=== PATIENT | female | born 1945 | race Caucasian/White ===

== ENCOUNTER 2017-02-22 13:21 | Emergency (ER) | payer SELFPAY ==
--- NOTE | 2017-02-27 13:49 | ER ---
ADMIT: 02/22/2017 RM/LOC: ER [facility] MR#: [id number] [address] [facility] [address] [place], [place] [address] CHAVEZ DONOVAN [address] [id number] Emergency Room Report SEX: F AGE: 71 : 1945 DATE: 02/22/2017 HISTORY OF PRESENT ILLNESS: The patient is a 71-year-old female, came to the ER with daughter, chief complaint of not having appetite to eat for the last 8 months. The patient denies any difficulty swallowing or any abdominal pain or chest pain or shortness of breath. The patient states sometimes she has cough, which has not changed from before. The patient states she generally feels weak and tired all the time and states that she has problems going to sleep and has decreased appetite. The patient during the last 8 or 9 months had a very few episodes of nausea, which the patient does not have it today. Their primary doctor is in [place], and the patient has not been seen by a primary physician for some time. The patient has a history of hypothyroidism and hypertension and is compliant with her medications. PHYSICAL EXAMINATION: GENERAL: The patient was quiet, in no distress sitting in bed, looks mildly lethargic. HEAD AND NECK: Normal conjunctivae, pharynx is normal, no thyromegaly. CHEST: There are questionable crackles at the right posterior lower lung, I did not hear any wheezing. Normal cardiac sounds without any S3 or S4 gallop. ABDOMEN: Soft and nontender. In the back and skin, I did not see any abnormality. EXTREMITIES: Not tender or swollen. NEUROLOGIC: Motor and sensory, and rest of the neural exam is normal. PSYCHOLOGIC: The patient does not have any suicidal or homicidal ideation. The patient does not have any delusions or hallucinations too. EKG showed atrial fibrillation with a heart rate of 79, chest x-ray was questionable with right lower lobe infiltration, atelectasis. The patient had white BC of 10.1 with hemoglobin of 13 and platelet of 163. TSH was 0.3 with free T4 of 1.35. Sodium was 142 with potassium of 3.4, and BUN of 23, and glucose of 82 and creatinine of 0.9. Urine was not significant. The patient ADMIT: 02/22/2017 RM/LOC: ER [facility] MR#: [id number] [address] [address] [address] Emergency Room Report SEX: F AGE: 71 : 1945 has no primary doctor. The importance of having a primary doctor was discussed with the patient and daughter, and they insisted that the patient be started on if necessary any mood changing medications. The patient was started on Lexapro. The importance of following up at least the 1st week as soon as possible with the primary doctor and then chronic followups were discussed with the patient and the family. They were informed that in some patients Lexapro could increase the suicidality of the patient, and it takes few weeks to have any effects on changing the mood. The very importance of the close followup as soon as possible with the primary doctor was discussed with the patient and family, and they promised to find a family doctor and get an appointment this week. The patient was discharged to home with Lexapro 10 mg p.o. daily, Z-Binh, and follow up with the primary doctor this week. Virgilio Monzon MD/ alexsander JOB #: [id number] CC: Octavio Mendoza MD, Attending Physician UNKNOWN, Family Physician
[2017-03-17] MEDS ORDERED: XARELTO20 MG PO (18:20)
[2017-03-17] MEDS ORDERED: SYNTHROID DP0.025 MG PO (18:20)
[2017-03-17] MEDS ORDERED: DUONEB DPS3 ML IH (18:21)
[2017-03-17] MEDS ORDERED: ASA CHILDREN'S81 MG PO (18:22)
[2017-03-17] MEDS ORDERED: BREO ELLIP1 PUFF/DOS IH (18:22)
[2017-03-17] MEDS ORDERED: DELTASONE DPS10 MG PO (18:23)
[2017-03-17] MEDS ORDERED: LEVAQUIN DPS750 MG PO (18:24)
[2017-03-17] MEDS ORDERED: MUCINEX600 MG PO (18:25)
[2017-03-17] MEDS ORDERED: NICODERM CQ1 EAC1 TD (18:25)
[2017-03-17] MEDS ORDERED: MIRALAX PACKET17 GM PO (18:25)
[2017-03-17] MEDS ORDERED: COLACE-DPS100 MG PO (18:25)
== END 2017-02-22 15:45 | disposition home or self-care (01) ==
LOC: ER 13:21
DX: J18.9 Pneumonia, unspecified organism (principal); F43.0 Acute stress reaction; I48.91 Unspecified atrial fibrillation; F39 Unspecified mood [affective] disorder; I10 Essential (primary) hypertension; E03.9 Hypothyroidism, unspecified; F17.210 Nicotine dependence, cigarettes, uncomplicated; Z79.899 Other long term (current) drug therapy

== ENCOUNTER → 2017-03-09 | Outpatient (CLI) | payer SELFPAY ==
[~2017-03-09] MED LIST: ASA CHILDREN'S81 MG PO; BREO ELLIP1 PUFF/DOS IH; COLACE-DPS100 MG PO; DELTASONE DPS10 MG PO; DUONEB DPS3 ML IH; LEVAQUIN DPS750 MG PO; MIRALAX PACKET17 GM PO; MUCINEX600 MG PO; NICODERM CQ1 EAC1 TD; SYNTHROID DP0.025 MG PO; XARELTO20 MG PO
== END | disposition home or self-care (01) ==
LOC: PTH.S 07:30 → RAD.S 08:00
DX: R05 Cough (principal); J98.11 Atelectasis; J98.09 Other diseases of bronchus, not elsewhere classified

== ENCOUNTER 2017-03-15 03:06 | Inpatient (IN) | payer SELFPAY ==
[~2017-03-15] VITALS: Ht 167.6 cm; Wt 76.4 kg
--- NOTE | ~2017-03-15 | ECH ---
Transthoracic Echocardiography Report (TTE) Demographics Patient Name YULIA DONOVAN Date of Study 03/15/2017 Patient Number [id number] Visit Number [id number] Date of 1945 Room Number 310 Accession Number [id number] Gender Female Age 71 year(s) Referring Kadeem Lal Cable Tester Suzie Tolentino [facility] Physician Physician Interpreting [place] Nathan [employer] Lug[employer] Molder Physician Supervising Ordering Physician Kadeem Lal MD/MLP Nurse Stress Voice Network Engineer Conclusions Summary Technically fair exam. The estimated left ventricular ejection fraction is 55-60% in underlying atrial fibrillation. Mild concentric left ventricular hypertrophy. The left atrium is mildly dilated by LA volume index measurement. No significant valvular abnormalities. Procedure Type of Study TTE procedure:Echo Complete SF. Procedure Date Date: 03/15/2017 Start: 10:28 AM Technical Quality: Fair Indications:Atrial fibrillation and Hypertension. Height: 66 inches Weight: 168 pounds BSA: 1.86 m Rhythm: Atrial fibrillation HR: 79 bpm BP: 87/68 mmHg M-Mode/2D Measurements LV Diastolic Dimension: 4.8 cm LV Systolic Dimension: 2.72 cm LV Septum Diastolic: 0.94 cm LV PW Diastolic: 1.01 cm AO Root Dimension: 2.16 cm Cardiac Output: 4.93 l/min LA Dimension: 4.55 cm Cardiac Index: 2.65 l/min*m LA volume index: 38 ml/m LVOT: 1.92 cm RV Base: 3.7 cm LVOT VTI: 21.55 cm RV Mid: 2.4 cm LV Stroke volume: 62.36 ml RV Length: 5.9 cm LV Stroke volume index: 33.53 ml/m Doppler Measurements AV Peak Velocity: 1.15 m/s MV Peak E-Wave: 0.79 m/s AV Peak Gradient: 5.29 mmHg AV Mean Gradient: 2.89 mmHg LVOT Peak Velocity: 0.95 m/s AV Area (Continuity):2.99 cm PV Peak Velocity: 0.98 m/s TR Velocity:2.17 m/s PV Peak Gradient: 3.82 mmHg TR Gradient:18.84 mmHg Estimated PASP: 22.84 mmHg Estimated RAP:4 mmHg Estimated RVSP: 23 mmHg RA Area: 16.47 cm Findings Left Ventricle The left ventricle is normal in size . Mild concentric left ventricular hypertrophy. Diastolic function indeterminate due to patient's arrhythmia. Right Ventricle Normal right ventricle structure and function. Left Atrium The left atrium is mildly dilated by LA volume index measurement. Right Atrium Normal right atrial size. Mitral Valve Normal mitral valve structure and function. Trivial mitral regurgitation by color Doppler. Aortic Valve Normal aortic valve structure and function. Tricuspid Valve Normal appearing tricuspid valve. Trivial tricuspid regurgitation by color Doppler. Pulmonic Valve Normal pulmonic valve structure and function. Pericardial Effusion No evidence of pericardial effusion. Miscellaneous Visualized portions of the aortic root and ascending aorta appear normal in size. Pleural Effusion No evidence of pleural effusion. Contractility Score LV regional wall motion:(0-Non visualized 1-Normal 2-Hypokinesis 3-Akinesis 4-Dyskinesis 5-Aneurysm) Signature
--- NOTE | 2017-03-15 19:37 | ER ---
ADMIT: 03/15/2017 RM/LOC: 310 [facility] MR#: [id number] [address] [place] [id number] [place], [place] [address] YULIA DONOVAN [address] [id number] Emergency Room Report SEX: F AGE: 71 : 1945 DATE: 03/15/2017 CHIEF COMPLAINT: Respiratory distress. HISTORY OF PRESENT ILLNESS: The patient is a 71-year-old female, presents by ambulance with acute respiratory distress that awoke her this morning, took an aerosol treatment prior to paramedics arrival. Continued with DuoNeb with slight improvement. 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 Also states she has been noncompliant with her Synthroid for the past 2 weeks. She has been compliant with her Xarelto for chronic atrial fibrillation. PAST MEDICAL HISTORY: ILLNESSES: Atrial fibrillation, hypertension, hyperlipidemia, hypothyroidism, tracheal stenosis/malacia. OPERATIONS: Appendectomy, partial thyroidectomy. ALLERGIES: NONE. MEDICATIONS: None. SOCIAL HISTORY: Smokes 1/3 pack per day. No illicit drugs or alcohol. FAMILY HISTORY: Negative per chart review. REVIEW OF SYSTEMS: A 12-point review of systems negative for all other systems, illnesses, or operations except as outlined above. PHYSICAL EXAMINATION: VITAL SIGNS: Temp 96.9, pulse 87, respirations 22, BP 109/87, SaO2 of 98% on room air. GENERAL: Anxious, non-diaphoretic, without jaundice or icterus. HEENT: Normocephalic. No evidence of epistaxis, rhinorrhea, or otorrhea. NECK: Supple without lymphadenopathy or thyromegaly. CHEST: Breath sounds equal, diminished, with expiratory wheeze noted throughout. HEART: Regular rate, irregular rhythm without murmur, gallop, or edema. ABDOMEN: Soft, nontender, nondistended without mass or megaly. Bowel sounds hypoactive. EXTREMITIES: No evidence of Homans sign, synovitis, or dermatitis. MEDICAL DECISION MAKING: The patient was given racemic epi, 2 DuoNeb, Solu- Medrol, magnesium with improvement. EKG shows atrial fib, low voltage, unchanged from previous. Chest x-ray showed no acute findings. CTA chest showed right middle lobe atelectasis, no infiltrate or pulmonary emboli. WBC 10.7, lactic 1.5, CRP less than 0.29. Troponin less than 0.015. D-dimer is slightly elevated 0.76. BNP 189. INR 1.52. TSH elevated 57.4, free T4 decreased to 0.24. UA clean-catch specimen 3+ leukocyte esterase. The patient was given 30 mL/kg bolus with improvement in blood pressure. Discussed case with Dr. Quan, who agreed and gave orders to nursing staff. Levaquin 500 mg IV piggyback was initiated at in department for UTI. ADMIT: 03/15/2017 RM/LOC: 310 [facility] MR#: [id number] [address] [address] [address] Emergency Room Report SEX: F AGE: 71 : 1945 DIAGNOSES: 1. Acute exacerbation of chronic obstructive pulmonary disease. 2. Hypothyroidism. 3. Urinary tract infection. RECOMMENDATION: Admit inpatient PCU for Dr. Quan. ADMISSION/DISCHARGE CONDITION: Good. Alejandro Holloway MD/ modl JOB #: [id number] CC: Floridalma Quan MD, Attending Physician Floridalma Quan MD, Family Physician Ying Quan MD
[2017-03-17] MEDS ORDERED: XARELTO20 MG PO (18:20)
[2017-03-17] MEDS ORDERED: SYNTHROID DP0.025 MG PO (18:20)
[2017-03-17] MEDS ORDERED: DUONEB DPS3 ML IH (18:21)
[2017-03-17] MEDS ORDERED: BREO ELLIP1 PUFF/DOS IH (18:22)
[2017-03-17] MEDS ORDERED: ASA CHILDREN'S81 MG PO (18:22)
[2017-03-17] MEDS ORDERED: DELTASONE DPS10 MG PO (18:23)
[2017-03-17] MEDS ORDERED: LEVAQUIN DPS750 MG PO (18:24)
[2017-03-17] MEDS ORDERED: COLACE-DPS100 MG PO (18:25)
[2017-03-17] MEDS ORDERED: MIRALAX PACKET17 GM PO (18:25)
[2017-03-17] MEDS ORDERED: NICODERM CQ1 EAC1 TD (18:25)
[2017-03-17] MEDS ORDERED: MUCINEX600 MG PO (18:25)
--- NOTE | 2017-03-22 08:49 | HP ---
ADMIT: 03/15/2017 RM/LOC: 310 [facility] MR#: [id number] 2620 [facility] [address] [place], [place] [address] YULIA DALEY [address] [address] History and Physical SEX: F AGE: 71 : 1945 DATE OF SERVICE: CHIEF COMPLAINT: Shortness of breath. HISTORY OF PRESENT ILLNESS: Ms. Daley is a 71-year-old female, who has been seen by Ying Ramires at our clinic but usually gets medical care at [facility], who presented with shortness of breath overnight. She said she was in her usual state of health yesterday, but woke up in the middle of night and was unable to breathe. She came to the ER and her symptoms improved after a breathing treatment. She has a significant smoking history of greater than 50 years of smoking more than one pack per day. She denies any previous diagnosis of COPD and does not use any inhalers. She does have known atrial fibrillation and was recently started on Xarelto for this. She also saw Cardiology just two weeks ago who was in the process of a cardiac evaluation. Her other medical history is significant for depression and hypothyroidism. She has been out of all of her medications however over the last two weeks. At this time, she denies any chest pain or shortness of breath. She does have some increased sputum production. She also has chronic constipation that is unchanged. No fevers or chills. No chest pain or palpitations. No nausea or vomiting. No diaphoresis. PAST MEDICAL HISTORY: 1. Persistent atrial fibrillation, on chronic anticoagulation. 2. Hypertension. 3. Hypothyroidism. 4. Generalized anxiety disorder. 5. Major depressive disorder. 6. Noncompliance. MEDICATIONS: 1. Escitalopram 10 mg daily. 2. Losartan 100 mg daily. 3. Hydrochlorothiazide 25 mg daily. 4. Synthroid 250 mcg daily. 5. Xarelto 20 mg daily. 6. Albuterol p.r.n. 7. [id number] constipation treatment. ALLERGIES: NO KNOWN MEDICAL ALLERGIES. FAMILY HISTORY: Noncontributory. SOCIAL HISTORY: The patient is previously from [place]. Her and son recently , so has been having difficulty with this. She has been smoking at least one pack per day since the age of 22. She did report going nine months tobacco free about one year ago. REVIEW OF SYSTEMS: As per HPI. Otherwise, reviewed and negative. ADMIT: 03/15/2017 RM/LOC: 310 [facility] MR#: [id number] [address] [address] [place] [address] [address] History and Physical SEX: F AGE: 71 : 1945 PHYSICAL EXAMINATION: VITAL SIGNS: Temperature 97.6, heart rate 93, blood pressure 90/51, respiratory rate 25, oxygen saturation 96% on room air. GENERAL: The patient is awake, alert, in no acute distress. HEENT: Within normal limits. HEART: Regular rate and rhythm. No murmurs. LUNGS: Diminished throughout. No accessory muscle use. No adventitial lung sounds. She does cough up some sputum. ABDOMEN: Soft, nontender, nondistended. Normal bowel sounds. EXTREMITIES: Warm and dry. No edema. SKIN: With poor turgor, but no other rash or lesion. NEUROLOGIC: Cranial nerves II through XII grossly intact. No focal neurologic deficit. PSYCHIATRIC: The patient has a depressed affect, but otherwise appropriate. LABORATORY DATA: Reviewed. IMAGING: CTA and chest x-ray were reviewed. EKG shows atrial fibrillation with a rate of 81. ASSESSMENT AND PLAN: 1. Chronic obstructive pulmonary disease exacerbation. We will start oral prednisone, Levaquin, and continue DuoNebs. We will also initiate Breo for chronic management. Strongly encouraged tobacco cessation. 2. Tobacco abuse. Cessation encouraged. She will use a nicotine patch during admission and was agreeable to continue this as an outpatient. 3. Persistent atrial fibrillation, on rate control. She is also on anticoagulation, but has been noncompliant with this. We will get her cardiac echocardiogram while she is inpatient today. We will continue to ADMIT: 03/15/2017 RM/LOC: 310 [facility] MR#: [id number] [address] [address] [facility] [place] [id number] History and Physical SEX: F AGE: 71 : 1945 follow with Cardiology as an outpatient unless acute issues arise. 4. Chronic hypertension with acute hypotension during this admission. Her blood pressures have responded nicely to IV fluids, we will continue with this. We will hold her antihypertensive medications until blood pressure stabilize. 5. Hypothyroidism. This is uncontrolled secondary to medication noncompliance. Stressed the importance of taking her medications routinely. We will restart at this time. 6. Generalized anxiety disorder and major depressive disorder. We will continue her escitalopram. No signs of suicidal ideation. 7. Disposition. The patient will continue with progressive care monitoring. 8. Code status. The patient is a full code. Floridalma Quan MD/ alexsander JOB #: [id number] CC: Floridalma Quan, Attending Physician Floridalma Quan, Family Physician
--- NOTE | 2017-04-04 07:18 | DS ---
ADMIT: 03/15/2017 RM/LOC: 428 [facility] MR#: [id number] [address] [facility] [address] [place], [place] [address] MITUL DONOVANATE [address] [address] General Discharge Summary SEX: F AGE: 71 : 1945 ADMISSION DATE: 03/15/2017 DISCHARGE DATE: 03/16/2017 DISCHARGE DIAGNOSES: 1. Chronic obstructive pulmonary disease with acute exacerbation. 2. Urinary tract infection. 3. Chronic atrial fibrillation, rate controlled on chronic anticoagulation. 4. Hypertension with episodic hypotension. 5. Hypothyroidism, uncontrolled. 6. Generalized anxiety disorder. 7. Noncompliance with medications. 8. Tobacco abuse. PROCEDURES: None. CONSULTS: None. REASON FOR ADMISSION: The patient was admitted from the Emergency Department after presenting with increased shortness of breath and the findings concerning for COPD exacerbation and urinary tract infection. HOSPITAL COURSE: The patient was initiated on IV antibiotics with Levaquin through the Emergency Department. She was admitted to progressive care unit for further evaluation and treatment. She had borderline low blood pressures with initial blood pressure of 98/59. This improved with IV fluids, and at time of discharge was 106/67. She also has known chronic atrial fibrillation and was monitored on telemetry. Her heart rates were controlled in the 70s to 90s. She is on Xarelto as an outpatient, although has been noncompliant with this. It was restarted during her admission. Similarly, she has chronic hypothyroidism and is prescribed Synthroid as an outpatient. She has not been taking this either. Therefore, her TSH on initial presentation was elevated at 57.4. Her Synthroid was restarted during this admission. Her initial complaint was shortness of breath. This responded well to nebulizers. Her Levaquin was able to be transitioned to p.o. route on March 15. Her Breo inhaler was also restarted. She had DuoNebs q.i.d. and up to every 4 hours as needed. She did not require any supplemental oxygen. Chest x-ray did not show any consolidation. It was recommended that she quit smoking. She was not allowed to smoke during her admission and received nicotine transdermal patch. On March 16, her magnesium level was mildly low at 1.5. This was treated and responded appropriately and was 1.8 at discharge. She underwent a 6-minutes oxygen assessment walk and did not require any oxygen. Given stability on oral medications and no need for oxygen, she was stable for discharge on March 16. DISCHARGE MEDICATIONS: 1. Xarelto 20 mg daily. 2. Synthroid 250 mcg daily. 3. Aspirin 81 mg daily. 4. Breo 100 mcg daily. ADMIT: 03/15/2017 RM/LOC: 428 [facility] MR#: [id number] [address] [address] YULIA DONOVAN [address] [place] [address] General Discharge Summary SEX: F AGE: 71 : 1945 5. DuoNeb q.i.d. for seven days and up to every 4 hours as needed. 6. Prednisone 40 mg today and then taper over the next nine days. 7. Levaquin 750 mg one tablet daily for seven days. 8. Nicotine patch. 9. Docusate b.i.d. p.r.n. 10.Guaifenesin 600 mg b.i.d. p.r.n. 11.MiraLax p.r.n. DISCHARGE INSTRUCTIONS: The patient was discharged to home in stable condition. She will follow up with her usual providers at [facility] on March 23. She will continue with diet and activity as tolerated. Tobacco cessation was again encouraged. Greater than 30 minutes was spent in discharge. Floridalma Quan MD/ alexsander JOB #: [id number] CC: Floridalma Quan MD, Attending Physician Floridalma Quan MD, Family Physician
== END 2017-03-16 15:30 | disposition home or self-care (01) | DRG 191 ==
LOC: ER 03:06 → 4PCU 06:30 → 3ICU 06:30 → 4PCU 21:51
PROVIDERS: ADMIT Family Medicine
DX: J44.1 Chronic obstructive pulmonary disease with (acute) exacerbation (principal); N39.0 Urinary tract infection, site not specified; I95.9 Hypotension, unspecified; I48.2 Chronic atrial fibrillation; K59.09 Other constipation; T38.1X6A Underdosing of thyroid hormones and substitutes, initial encounter; Z91.128 Patient's intentional underdosing of medication regimen for other reason; F41.1 Generalized anxiety disorder; F32.9 Major depressive disorder, single episode, unspecified; I10 Essential (primary) hypertension; E78.5 Hyperlipidemia, unspecified; E03.9 Hypothyroidism, unspecified; F17.210 Nicotine dependence, cigarettes, uncomplicated; Z79.01 Long term (current) use of anticoagulants

== ENCOUNTER 2017-04-16 14:31 | Emergency (ER) | payer SELFPAY ==
--- NOTE | 2017-04-22 18:55 | ER ---
ADMIT: 04/16/2017 RM/LOC: ER [facility] MR#: [id number] [address] [address] YULIA MARTINEZ [address] [address] Emergency Room Report SEX: F AGE: 71 : 1945 DATE: 04/16/2017 ADDENDUM: This patient is brought into the ER by her daughter because of concerns of her breathing. She makes a lot of noise when she breathes. She was told that she has COPD, was admitted to the hospital because of issues with her thyroid according to her daughter recently. She has been having this funny breathing even when she was in the hospital and her daughter was concerned that they did not seem to do anything about it while she was admitted. On physical exam, her O2 saturation is 97% and she does have wheezing, but it sounds more like upper respiratory noises and not in her lungs. She ambulates without any difficulty and does not feel short of breath when she ambulates. Her chest x-ray was normal. I gave her a breathing treatment. I explained to the daughter that it sounded like she has had laryngitis, which is what she was told that she had. They would like a medication for this. I explained to them that it was viral since she really was able to eat and drink normally, was not having fevers, just the noise when she breathes. They should continue with the medications that were prescribed by their physician. If for any reason she has difficulty with shortness of breath, unable to walk, not keeping fluids down, or fevers, they should return to the ER or see their physician. Please see my T-sheet. SEAMUS Thornton / Danial Licona MD / alexsander JOB #: [id number] CC: Danial Licona MD, Attending Physician UNKNOWN, Family Physician Doug Stoddard MD
== END 2017-04-16 15:50 | disposition home or self-care (01) ==
LOC: ER 14:31
DX: J04.0 Acute laryngitis (principal); E03.9 Hypothyroidism, unspecified; F17.200 Nicotine dependence, unspecified, uncomplicated; Z90.49 Acquired absence of other specified parts of digestive tract; Z79.899 Other long term (current) drug therapy; Z79.82 Long term (current) use of aspirin; Z79.01 Long term (current) use of anticoagulants

== ENCOUNTER 2017-04-19 11:13 | Emergency (ER) | payer SELFPAY ==
--- NOTE | 2017-04-22 12:41 | ER ---
ADMIT: 04/19/2017 RM/LOC: ER [facility] MR#: [id number] [address] [address] YULIA MARTINEZ [address] [address] Emergency Room Report SEX: F AGE: 71 : 1945 DATE: 04/19/2017 ADDENDUM: A 71-year-old female coming in with shortness of breath. She has COPD. She has a raspy type of cough. A soft tissue neck was done. There is really nothing acute on the soft tissue neck. The chest x-ray was done yesterday when she was here. She had not pneumonia. CBC, chemistry, and BNP essentially negative. At this time, she said she quit smoking. She had smoked for a long time. I gave her Decadron 20 and DuoNeb. She is not septic. We are going to send her out on albuterol inhaler, which she was out of, and prednisone 20 b.i.d. for 4 days. She is going to start in the morning and then Augmentin 500 t.i.d. x10 days. She usually goes through [facility], which she can continue. CONDITION ON DISCHARGE: Fair. Miguel Angel Chaidez MD/ alexsander JOB #: [id number] CC: Miguel Angel Chaidez MD, Attending Physician UNKNOWN, Family Physician
== END 2017-04-19 14:05 | disposition home or self-care (01) ==
LOC: ER 11:13
DX: J44.1 Chronic obstructive pulmonary disease with (acute) exacerbation (principal); I10 Essential (primary) hypertension; E78.5 Hyperlipidemia, unspecified; I48.91 Unspecified atrial fibrillation; E03.9 Hypothyroidism, unspecified

== ENCOUNTER → 2017-04-21 | Outpatient (CLI) | payer OTHER | END | disposition home or self-care (01) | LOC: PTH.S 10:41 | DX: E03.9 Hypothyroidism, unspecified (principal) ==